=== PATIENT | male | born 1980 | race African-American/Black ===

== ENCOUNTER 2018-04-02 18:51 | Emergency (ER) | payer OTHER ==
[~2018-04-02] VITALS: Ht 190.5 cm; Wt 106.6 kg
[2018-04-02 19:51] VITALS: BP 184/101
[2018-04-02] MEDS ORDERED: CYCL10TA2 PO (20:02)
[2018-04-02] MEDS ORDERED: IBUP-1060 PO (20:02)
--- NOTE | 2018-04-02 20:11 | PHYS DOC ---
Past Medical History Past Medical History: Stroke Past Surgical History: No Surgical History Alcohol Use: Occasionally Drug Use: None Adult General Chief Complaint Chief Complaint: LOWER BACK PAIN OR INJURY [facility] HPI Patient is a 37 year old male who presents with low back pain. Patient works as a corporate driver. He was working earlier today. As he was climbing down from the forklift he had sudden onset of pain in the left lower back. He describes it to be muscle spasm type pain. Pain is nonradiating. No weakness, numbness, tingling in lower extremities. No prior history of back problems. No recent fevers. No fall. No trauma. Review of Systems Review of Systems Constitutional: Denies fever Eyes: Denies change in visual acuity HENT: Denies nasal congestion Respiratory: Denies cough Cardiovascular: No additional information not addressed in HPI GI: Denies abdominal pain, nausea : Denies dysuria Musculoskeletal: no traumatic injury Integument: Denies rash or skin lesions Neurologic: Denies headache Endocrine: Denies polyuria All other systems were reviewed and found to be within normal limits, except as documented in this note. Allergies Allergies Allergies Coded Allergies Type Severity Reaction Last Updated Verified No Known Drug Allergies 04/02/18 No Physical Exam Physical Exam Constitutional: Well developed, well nourished, no acute distress, non-toxic appearance HENT: Normocephalic, atraumatic, bilateral external ears normal, oropharynx moist Eyes: PERRLA, EOMI, conjunctiva normal Neck: Normal range of motion, no tenderness Cardiovascular:Heart rate regular rhythm, no murmur Lungs & Thorax: Bilateral breath sounds clear to auscultation Skin: Warm, dry, no erythema, no rash Back: + TTP and muscle spasm over left lumbar paraspinal muscles. No midline tenderness Extremities: Normal exam Neurologic: Alert and oriented X 3, 5/5 motor strength bilateral LE's. Normal steady gait. Psychologic: Affect normal Current Patient Data Vital Signs Vital Signs Date Time Temp Pulse Resp B/P (MAP) Pulse Ox O2 Delivery O2 Flow Rate FiO2 04/02/18 19:51 98.4 74 16 184/101 (128) 98 Room Air 98.4 EKG EKG [] Radiology/Procedures Radiology/Procedures [] Course & Med Decision Making Course & Med Decision Making Pertinent Labs and Imaging studies reviewed. (See chart for details) Patient seen in the ER for LBP, atraumatic. Normal exam and no red flags on HPI. Treated with Rx for flexeril and motrin. Advised to f/u with occupational health physician. 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 Return precautions discussed and all of his questions answered prior to discharge home. Dragon Disclaimer Dragon Disclaimer This electronic medical record was generated, in whole or in part, using a voice recognition dictation system. Departure Departure Impression: Primary Impression: Strain of fascia of lower back Disposition: HOME, SELF-CARE Condition: GOOD Patient Instructions: Back Exercises, [id number], Back Injury Prevention Scripts Cyclobenzaprine Hcl (CYCLOBENZAPRINE HCL) 10 Mg Tablet 1 TAB PO TID for muscle spasm, #21 TAB Prov: BAYRON LOVING DO 04/02/18 Ibuprofen (IBUPROFEN) 800 Mg Tablet 800 MG PO PRN TID PRN for MILD PAIN, #30 TAB take with food or milk to avoid upsetting stomach Prov: BAYRON LOVING DO 04/02/18 BAYRON LOVING DO Apr 02, 2018 20:11
== END 2018-04-02 20:13 | disposition home or self-care (01) ==
LOC: ER 18:51
DX: S39.012A Strain of muscle, fascia and tendon of lower back, initial encounter (principal); Z86.73 Personal history of transient ischemic attack (TIA), and cerebral infarction without residual deficits; X50.9XXA Other and unspecified overexertion or strenuous movements or postures, initial encounter; Y93.89 Activity, other specified; Y92.89 Other specified places as the place of occurrence of the external cause; Y99.8 Other external cause status
CPT/HCPCS: 99283